=== PATIENT | male | born 1990 | race Caucasian/White ===

== ENCOUNTER 2017-08-01 10:00 | Emergency (ER) | payer BC ==
[~2017-08-01] VITALS: Ht 148.6 cm; Wt 54.2 kg
[2017-08-01 10:08] VITALS: TEMP 36.9; Ht 148.6 cm; Wt 54.2 kg
--- NOTE | 2017-08-01 11:47 | DIAGNOSTIC IMAGING REPORT ---
R KNEE 3 VIEWS CLINICAL HISTORY: fall; R knee and thoracic and lumbar back pain COMPARISON STUDY: None. FINDINGS: No acute fracture or dislocation. Faint chondrocalcinosis. Moderate joint effusion. 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 No significant soft tissue swelling. No radiopaque foreign bodies. IMPRESSION: 1. No acute fracture or dislocation within the right knee. 2. Moderate knee effusion. 3. Chondrocalcinosis. 4. Multiple osteochondromas. Electronically signed by: Emile Olsen M.D. 08/01/2017 11:45 AM Dictated Date/Time: 08/01/2017 11:43 AM
--- NOTE | 2017-08-01 11:56 | DIAGNOSTIC IMAGING REPORT ---
THORACIC SPINE 3 VIEWS, LUMBAR SPINE 5 VIEWS HISTORY: Thoracic and lumbar pain. Fall. COMPARISON: None. FINDINGS: There is no fracture. No subluxation. Disc spaces are preserved. Paraspinal soft tissues are unremarkable. The sacrum appears intact. A few tiny endplate osteophytes seen within the mid to lower thoracic spine is within minimal degenerative change. Mild levoscoliosis of the lumbar spine which may be positional. IMPRESSION: No fracture or subluxation within the thoracic or lumbar spine. Electronically signed by: Emile Olsen M.D. 08/01/2017 11:54 AM Dictated Date/Time: 08/01/2017 11:46 AM
[2017-08-01 12:43] VITALS: BP 128/81; PULSE 91; O2SAT 98
--- NOTE | 2017-08-01 20:48 | EMERGENCY ROOM VISIT NOTE ---
ED Visit Note First contact with patient: 10:59 Chief Complaint: Right knee and lower back pain. History of Present Illness: Patient reports approximately 20 minutes before he arrived in the emergency department he reports he was walking down stairs that were covered with ice. He reports he slipped and fell. He reports during the fall he twisted his right knee and struck his back on the steps. He reports before the fall he was not experiencing lightheaded or dizziness, the time of the fall he did not strike his head or have a loss of consciousness and since the injury he has not had any signs of head injury. Currently he places his right knee discomfort over the anterior and medial aspect of the knee at the joint line. He describes this as an achy sensation. He rates his discomfort 6/10. The pain is nonradiating. The pain worsens with ambulation, palpation, stress on the medial collateral ligament, hypertension and flexion beyond 90. He has not identified any alleviating factors related to the pain. He has not taken any medication for pain prior to arrival at the hospital. Additionally he complains of back pain. The pain extends from the T7-L5. He describes his pain as a sharp sensation. His pain is located over the bony spinous processes of the spine. His pain worsens with palpation and minimally with flexion at the waist. He has not taken any medications for pain prior to arrival at the hospital. He denies any associated head injuries, neck pain, chest pain, shortness of breath, abdominal pain, nausea, vomiting, lower extremity weakness/numbness/ tingling, previous significant injuries to the spine or the knee. Review of Systems: As noted above in history of present illness. 8 body systems were reviewed and found to be negative as noted above. Past Medical History: (1) Acute lymphoid leukemia, disease (2) Genital herpes simplex (3) Transplantation of bone marrow Current Medications: Zestril. Allergies to Medications: Augmentin. Social History: Patient is currently employed; he feels safe in his home environment; he admits to tobacco use. Physical Examination: Vital Signs: Date Time Temp Pulse Resp B/P (MAP) Pulse Ox O2 Delivery O2 Flow Rate FiO2 08/01/17 12:43 91 16 128/81 98 08/01/17 10:08 36.9 95 20 139/85 97 Room Air GENERAL: 27-year-old male in mild distress due to pain, nontoxic-appearing, afebrile and hemodynamically stable. NEUROLOGICAL: Awake, alert and oriented to person, place and time. Answering questions appropriately and following commands. Normal gait. Good hand eye coordination. No focal motor or sensory deficits. SKIN: Warm, dry and pink. No soft tissue trauma noted. HEENT: Atraumatic and normocephalic. BACK: No tenderness over the bony cervical spine. Full range of motion of the cervical spine. Mild to moderate tenderness starting at the T4 through L5 area. I do not appreciate any bony deformity, bony crepitus, step-offs, swelling or ecchymosis. No CVA tenderness. THORAX: Lungs sounds are clear to auscultation and equal bilaterally with symmetrical chest wall. ABDOMEN: Flat, soft and nontender. Positive bowel sounds in all quadrants. LOWER EXTREMITIES: Moves all extremities well on command and with purpose. All distal neurovascular statuses are intact and equal bilaterally. 2+ patellar and Achilles deep tendon reflexes intact and equal bilaterally. Throughout the leg skin was warm and pink and capillary refill is brisk. RIGHT LOWER EXTREMITY: No gross bony deformity. No malrotation or shortening. Mild to moderate tenderness over the medial joint line with swelling and possible early contusion. Minimal laxity of the medial collateral ligament when compared bilaterally. No laxity of the cruciate ligaments. Decreased range of motion due to pain and swelling. There is also minimal tenderness over the hamstrings attachment over the medial aspect of the knee. No pain throughout the lower leg, ankle or foot. Full muscle strength and range of motion of the lower leg and foot. Distal neurovascular statuses are intact. ED Course: Patient is assessed as noted above per Patient's medication list was reviewed. Patient was offered pain medication and refused; he was given ice for pain and comfort. Thoracic Spine X-Rays: Were read by myself and the radiologist showing no acute fractures or subluxations. Lumbar Spine X-Rays: Were read by myself and read by the radiologist showing no acute fractures or subluxations. Right Knee X-Rays: Were read by myself and shows no acute fractures or dislocations. Moderate joint effusion, multiple osteochondromas within the distal femur and proximal tibia. Patient was placed in a knee immobilizer and on nonweightbearing crutches. Patient was educated about today's findings and instructed on his treatment plan ; he verbalized understanding and agreement with this plan. Clinical Impression: Fall. Right knee pain. Thoracic and lumbar back pain. Disposition: Patient discharged home in stable condition accompanied by family member; prior to departure he was reassessed and rated his discomfort 01/12. Plan: Patient was encouraged to alternate ibuprofen and acetaminophen every 3 hours for persistent pain per Patient was encouraged use ice on areas of pain and swelling. Patient was encouraged to use knee immobilizer and nonweightbearing crutches for 3-6 days or until pain free. Patient was encouraged to follow-up with landscape specialist if no better in 6 -7 days. Patient was encouraged return ED for worsening/uncontrolled pain, uncontrolled swelling, leg weakness/numbness/tingling or any new/concerning symptoms.
[2017-08-19] MEDS ORDERED: LISI-725 PO (11:46)
== END 2017-08-01 12:40 | disposition home or self-care (01) ==
LOC: C.EDB 10:03 → C.EDD 12:40
DX: M25.561 Pain in right knee (principal); M54.5 Low back pain; M54.6 Pain in thoracic spine; W01.0XXA Fall on same level from slipping, tripping and stumbling without subsequent striking against object, initial encounter; I10 Essential (primary) hypertension; Z85.6 Personal history of leukemia; Z94.81 Bone marrow transplant status; Z79.899 Other long term (current) drug therapy; Z87.891 Personal history of nicotine dependence; Z88.8 Allergy status to other drugs, medicaments and biological substances

== ENCOUNTER 2017-08-19 16:57 | Emergency (ER) | payer BC ==
[~2017-08-19] VITALS: Ht 147.3 cm; Wt 52.9 kg
[~2017-08-19 16:57] MED LIST: LISI-725 PO
[2017-08-19 17:08] VITALS: TEMP 36.7; Ht 147.3 cm; Wt 52.9 kg
[2017-08-19] MEDS ORDERED: ALUMINUM/MAGNESIUM SUSP 30 ML UDC PO STA (18:23)
--- NOTE | 2017-08-19 18:29 | EMERGENCY ROOM VISIT NOTE ---
History Report prepared by Kaley: Stephon Gabriel Under the Supervision of: Dr. Willam Mack D.O. First contact with patient: 18:14 Chief Complaint: CARDIAC ASSESSMENT Stated Complaint: HIGH BLOOD PRESSURE, CHEST PAINS Nursing Triage Summary: Patient was at work and c/o left upper chest pains. 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 Patient takes lisinopril for HTN History of Present Illness The patient is a 27 year old male who presents to the Emergency Room with complaints of constant left sided chest pains that began at 1315, 5 hours prior to arrival. He describes the pain as an "ache." He claims that the pain is worse with breathing. 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 His blood pressure was 139/100, and she noted that he had a rapid heart beat. He denies any unusual pain the his abdomen, or lower extremities. 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 He has never experienced GERD secondary to the radiation. He also has stage II kidney disease. The patient's mother noted that the patient 's grandfather has had aneurysms in the past. 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 A total of 10 systems reviewed and were otherwise negative. Past Medical & Surgical Medical Problems: (1) Acute lymphoid leukemia, disease (2) Genital herpes simplex (3) Transplantation of bone marrow Family History FH: aneurysm Social History Smoking Status: Current Some Day Smoker Alcohol Use: occasionally Marital Status: single Occupation Status: employed Current/Historical Medications Scheduled Black Pepper-Turmeric (Turmeric Curcumin 3-500 mg), 1 CAP PO DAILY Lisinopril (Zestril), 20 MG PO DAILY Allergies Coded Allergies: Iodinated Diagnostic Agents (Verified Allergy, Severe, Shakes and hives, ) Amoxicillin (Unverified Allergy, Unknown, UNKNOWN, 08/01/17) Clavulanic Acid (Unverified Allergy, Unknown, UNKNOWN, 08/01/17) Physical Exam Vital Signs Date Time Temp Pulse Resp B/P (MAP) Pulse Ox O2 Delivery O2 Flow Rate FiO2 08/19/17 22:30 79 19 113/81 97 08/19/17 22:25 80 99 08/19/17 22:10 81 98 08/19/17 22:00 107/75 08/19/17 21:55 81 27 99 08/19/17 21:50 85 100 Room Air 08/19/17 21:05 85 27 99 08/19/17 21:00 122/82 08/19/17 20:50 77 24 99 08/19/17 20:45 85 23 100 08/19/17 20:30 81 13 122/75 97 08/19/17 20:15 85 21 97 08/19/17 20:00 80 20 103/73 98 08/19/17 19:45 85 26 99 08/19/17 19:40 82 17 100 08/19/17 19:30 111/73 08/19/17 19:25 87 99 08/19/17 19:10 81 26 100 08/19/17 19:08 81 08/19/17 19:05 81 24 100 Room Air 08/19/17 19:04 112/73 08/19/17 19:00 81 28 08/19/17 18:55 85 28 08/19/17 18:44 97 Room Air 08/19/17 18:44 97 Room Air 08/19/17 17:10 Room Air 08/19/17 17:08 36.7 98 16 126/82 99 Room Air Physical Exam GENERAL: Patient is awake, alert, and in no acute distress. Patient is resting comfortably and showing no signs of anxiety EYES: The conjunctivae are clear. The pupils are round and reactive. EARS, NOSE, MOUTH AND THROAT: The nose is without any evidence of any deformity. Mucous membranes are moist tongue is midline NECK: The neck is nontender and supple. RESPIRATORY: Normal respiratory effort is noted there is no evidence of wheezing rhonchi or rales CARDIOVASCULAR: Regular rate and rhythm noted there no murmurs rubs or gallops normal S1 normal S2 GASTROINTESTINAL: The abdomen is soft. Bowel sounds are present in all quadrants. Abdomen is nontender MUSCULOSKELETAL/EXTREMITIES: There is no evidence of gross deformity full range of motion is noted in the hips and shoulders SKIN: There is no obvious evidence of any rash. There are no petechiae, pallor or cyanosis noted. NEUROLOGIC: Patient is awake alert and oriented x3 Medical Decision & Procedures ER Provider Diagnostic Interpretation: Radiology results as stated below per my review and radiologist interpretation: R KNEE 1 OR 2 VIEWS ROUTINE CLINICAL HISTORY: swelling COMPARISON: August 01, 2017 DISCUSSION: Multiple osteochondromas are again visualized. There is a small joint effusion. There are no acute fractures. The bones are mildly osteopenic. There is very subtle chondrocalcinosis IMPRESSION: 1. No acute fractures 2. Multiple osteochondromas 3. Small joint effusion Electronically signed by: Bobby Lozano M.D. 08/19/2017 9:20 PM Dictated Date/Time: 08/19/2017 9:19 PM ULTRASOUND R VENOUS DOPP LOWER EXT UNILAT CLINICAL HISTORY: Right leg pain COMPARISON STUDY: No previous studies for comparison. FINDINGS: Real-time and color flow Doppler imaging were performed. Flow was seen within the femoral, popliteal and calf veins with no intraluminal thrombus demonstrated. The saphenous vein is patent. There is an architecturally unremarkable 19 x 12 x 7 mm right groin lymph node. IMPRESSION: No evidence of right lower extremity DVT. Electronically signed by: Bobby Lozano M.D. 08/19/2017 9:40 PM Dictated Date/Time: 08/19/2017 9:39 PM CHEST ONE VIEW PORTABLE CLINICAL HISTORY: Atypical chest pain COMPARISON STUDY: September 2012 FINDINGS: The cardiac and mediastinal contours are normal. There is no evidence of focal pulmonary consolidation. There is no evidence of failure. No pleural effusions are visualized.[ IMPRESSION: No active disease in the chest. Electronically signed by: Bobby Lozano M.D. 08/19/2017 6:50 PM Dictated Date/Time: 08/19/2017 6:49 PM Laboratory Results 08/19/17 19:00 Red Blood Count 4.50, Mean Corpuscular Volume 84.4, Mean Corpuscular Hemoglobin 28.2, Mean Corpuscular Hemoglobin Concent 33.4, Mean Platelet Volume 9.5, Neutrophils (%) (Auto) 59.2, Lymphocytes (%) (Auto) 30.7, Monocytes (%) (Auto) 7.8, Eosinophils (%) (Auto) 1.7, Basophils (%) (Auto) 0.3, Neutrophils # (Auto) 6.94, Lymphocytes # (Auto) 3.61, Monocytes # (Auto) 0.92, Eosinophils # (Auto) 0.20, Basophils # (Auto) 0.03 08/19/17 19:00 Test 08/19/17 19:00 White Blood Count 11.74 K/uL (4.8-10.8) Red Blood Count 4.50 M/uL (4.7-6.1) Hemoglobin 12.7 g/dL (14.0-18.0) Hematocrit 38.0 % (42-52) Mean Corpuscular Volume 84.4 fL (80-100) Mean Corpuscular Hemoglobin 28.2 pg (25-34) Mean Corpuscular Hemoglobin Concent 33.4 g/dl (32-36) Platelet Count 348 K/uL (130-400) Mean Platelet Volume 9.5 fL (7.4-10.4) Neutrophils (%) (Auto) 59.2 % Lymphocytes (%) (Auto) 30.7 % Monocytes (%) (Auto) 7.8 % Eosinophils (%) (Auto) 1.7 % Basophils (%) (Auto) 0.3 % Neutrophils # (Auto) 6.94 K/uL (1.4-6.5) Lymphocytes # (Auto) 3.61 K/uL (1.2-3.4) Monocytes # (Auto) 0.92 K/uL (0.11-0.59) Eosinophils # (Auto) 0.20 K/uL (0-0.5) Basophils # (Auto) 0.03 K/uL (0-0.2) RDW Standard Deviation 42.9 fL (36.4-46.3) RDW Coefficient of Variation 13.9 % (11.5-14.5) Immature Granulocyte % (Auto) 0.3 % Immature Granulocyte # (Auto) 0.04 K/uL (0.00-0.02) Prothrombin Time 11.0 SECONDS (9.0-12.0) Prothromb Time International Ratio 1.0 (0.9-1.1) Activated Partial Thromboplast Time 35.7 SECONDS (21.0-31.0) Partial Thromboplastin Ratio 1.4 Anion Gap 10.0 mmol/L (3-11) Est Creatinine Clear Calc Drug Dose 41.6 ml/min Estimated GFR () 62.7 Estimated GFR (Non- 54.1 BUN/Creatinine Ratio 22.6 (10-20) Calcium Level 10.1 mg/dl (8.5-10.1) Total Bilirubin 0.3 mg/dl (0.2-1) Direct Bilirubin < 0.1 mg/dl (0-0.2) Aspartate Amino Transf (AST/SGOT) 17 U/L (15-37) Alanine Aminotransferase (ALT/SGPT) 24 U/L (12-78) Alkaline Phosphatase 95 U/L (45-117) Total Creatine Kinase 78 U/L (39-308) Creatine Kinase MB < 0.5 ng/ml (0.5-3.6) Creatine Kinase MB Ratio (0-3.0) Troponin I < 0.015 ng/ml (0-0.045) Total Protein 8.9 gm/dl (6.4-8.2) Albumin 3.8 gm/dl (3.4-5.0) Lipase 247 U/L (73-393) Laboratory results per my review. Medications Administered Medications (Trade) Dose Ordered Sig/Desmond Route Start Time Stop Time Status Last Admin Dose Admin Al Hydroxide/Mg Hydroxide (Maalox Susp) 30 ml NOW STAT PO 08/19/17 18:23 08/19/17 18:25 DC 08/19/17 18:43 30 ML ECG Indication: chest pain Rate (beats per minute): 97 Rhythm: normal sinus Findings: no acute ischemic change, no ectopy Comparison ECG Date: no prior available ED Course 1815: The patient was evaluated in room B11. A complete history and physical examination were performed. 1822: Ordered Maalox Susp 30 mL PO. 2055: I checked on the patient at this time. He mentioned that he is having pain behind the right knee and calf. He notes that he fell before [place] and has had pain and swelling since. 224: Upon reevaluation, the patient is resting in bed. I discussed the results and treatment plan with him. He verbalized agreement of the treatment plan. The patient was discharged home. Medical Decision Differential diagnosis: Etiologies such as cardiac ischemia, aortic dissection, pulmonary embolism, pneumonia, pneumothorax, musculoskeletal, infections, pericarditis, myocarditis , esophageal rupture, gastrointestinal, as well as others were entertained. Nursing notes reviewed. The patient is a 27-year-old male who presented to the emergency department for an evaluation of chest discomfort. The patient did not have any acute changes on EKG. I discussed the patient's laboratory and radiographic studies with him. I also discussed the limitations of the emergency Department workup for chest pain. The patient was encouraged to rest and avoid any strenuous activity. I also recommended that he call his primary care physician in the morning to schedule a follow-up appointment. Otherwise he was encouraged to return to the emergency department immediately if symptoms change worsen or the need arises. Blood Pressure Screening Patient's blood pressure: Elevated blood pressure Blood pressure disposition: Elevated BP felt to be situational Impression Primary Impression: Atypical chest pain Additional Impression: Contusion of right knee Scribe Attestation The scribe's documentation has been prepared under my direction and personally reviewed by me in its entirety. I confirm that the note above accurately reflects all work, treatment, procedures, and medical decision making performed by me. Departure Information Dispostion Home / Self-Care Referrals Jovita Valentin D.O. (PCP) Forms IMPORTANT VISIT INFORMATION Patient Instructions My [facility] [employer] Additional Instructions Continue to use Maalox or Mylanta as directed for symptomatically relief. Follow -up with your family for reevaluation. Follow-up with the orthopedic physician as scheduled. Return to the emergency department if symptoms change worsen or the need arises. Problem Qualifiers Additional Impression: Contusion of right knee Encounter type: initial encounter Qualified Codes: S80.01XA - Contusion of right knee, initial encounter
[2017-08-19] MEDS ORDERED: BLAC1CAP5 PO (18:39)
[2017-08-19 18:44] VITALS: O2SAT 97
--- NOTE | 2017-08-19 18:51 | DIAGNOSTIC IMAGING REPORT ---
CHEST ONE VIEW PORTABLE CLINICAL HISTORY: Atypical chest pain COMPARISON STUDY: September 2012 FINDINGS: The cardiac and mediastinal contours are normal. There is no evidence of focal pulmonary consolidation. There is no evidence of failure. No pleural effusions are visualized.[ IMPRESSION: No active disease in the chest. Electronically signed by: Bobby Lozano M.D. 08/19/2017 6:50 PM Dictated Date/Time: 08/19/2017 6:49 PM
[2017-08-19 19:30] LABS: BASO % 0.3 %; BASO ABS # 0.03 K/uL (0-0.2); EOS % 1.7 %; HEMOGLOBIN 12.7 g/dL (14.0-18.0); IG# 0.04 K/uL (0.00-0.02); LYMPH % 30.7 %; LYMPH ABS # 3.61 K/uL (1.2-3.4); MEAN CELL VOLUME 84.4 fL (80-100); MEAN CORPUSCULAR HEMOGLOBIN 28.2 pg (25-34); MEAN CORPUSCULAR HGB CONC 33.4 g/dl (32-36); MEAN PLATELET VOLUME 9.5 fL (7.4-10.4); MONO % 7.8 %; MONO ABS # 0.92 K/uL (0.11-0.59); NEUT % 59.2 %; NEUT ABS # 6.94 K/uL (1.4-6.5); PLATELET COUNT 348 K/uL (130-400); RED CELL DISTRIBUTION WIDTH CV 13.9 % (11.5-14.5); RED CELL DISTRIBUTION WIDTH SD 42.9 fL (36.4-46.3); WHITE BLOOD COUNT 11.74 K/uL (4.8-10.8)
[2017-08-19 19:43] LABS: PTT PATIENT 35.7 SECONDS (21.0-31.0)
[2017-08-19 19:52] LABS: ALBUMIN 3.8 gm/dl (3.4-5.0); ALT/SGPT 24 U/L (12-78); AST/SGOT 17 U/L (15-37); BLOOD UREA NITROGEN 38 mg/dl (7-18); CALCIUM 10.1 mg/dl (8.5-10.1); CARBON DIOXIDE 27 mmol/L (21-32); CREATININE 1.68 mg/dl (0.60-1.40); GLUCOSE 94 mg/dl (70-99); LIPASE 247 U/L (73-393); POTASSIUM 4.3 mmol/L (3.5-5.1); SODIUM 136 mmol/L (136-145)
[2017-08-19 19:57] LABS: ALKALINE PHOSPHATASE 95 U/L (45-117); CKMB < 0.5 ng/ml (0.5-3.6); TOTAL PROTEIN 8.9 gm/dl (6.4-8.2)
--- NOTE | 2017-08-19 21:21 | DIAGNOSTIC IMAGING REPORT ---
R KNEE 1 OR 2 VIEWS ROUTINE CLINICAL HISTORY: swelling COMPARISON: August 01, 2017 DISCUSSION: Multiple osteochondromas are again visualized. There is a small joint effusion. There are no acute fractures. The bones are mildly osteopenic. There is very subtle chondrocalcinosis IMPRESSION: 1. No acute fractures 2. Multiple osteochondromas 3. Small joint effusion Electronically signed by: Bobby Lozano M.D. 08/19/2017 9:20 PM Dictated Date/Time: 08/19/2017 9:19 PM
--- NOTE | 2017-08-19 21:41 | DIAGNOSTIC IMAGING REPORT ---
ULTRASOUND R VENOUS DOPP LOWER EXT UNILAT CLINICAL HISTORY: Right leg pain COMPARISON STUDY: No previous studies for comparison. FINDINGS: Real-time and color flow Doppler imaging were performed. Flow was seen within the femoral, popliteal and calf veins with no intraluminal thrombus demonstrated. The saphenous vein is patent. There is an architecturally unremarkable 19 x 12 x 7 mm right groin lymph node. IMPRESSION: No evidence of right lower extremity DVT. Electronically signed by: Bobby Lozano M.D. 08/19/2017 9:40 PM Dictated Date/Time: 08/19/2017 9:39 PM
[2017-08-19 22:30] VITALS: BP 113/81; PULSE 79; O2SAT 97
== END 2017-08-19 22:36 | disposition home or self-care (01) ==
LOC: C.EDB 16:59
DX: R07.89 Other chest pain (principal); S80.01XA Contusion of right knee, initial encounter; W19.XXXA Unspecified fall, initial encounter; N18.2 Chronic kidney disease, stage 2 (mild); F17.200 Nicotine dependence, unspecified, uncomplicated; Z85.6 Personal history of leukemia; Z92.3 Personal history of irradiation; Z94.81 Bone marrow transplant status; Z82.49 Family history of ischemic heart disease and other diseases of the circulatory system

== ENCOUNTER → 2017-08-23 | Outpatient (CLI) | payer BC ==
[~2017-08-23] MED LIST changes: +BLAC1CAP5 PO
--- NOTE | 2017-08-23 21:27 | DIAGNOSTIC IMAGING REPORT ---
R LOWER EXT JOINT WITHOUT CLINICAL HISTORY: 27 years-old Male with RT KNEE PAIN. Acute right knee pain. History of osteochondromatosis. Remote history of cancer with bone marrow transplant COMPARISON: Right knee radiographs 08/19/2017 TECHNIQUE: Multiplanar, multisequence MRI of the right knee was performed without intravenous contrast. FINDINGS: MENISCI: Horizontal undersurface tear involves the posterior horn medial meniscus with extension into the meniscal root as seen on images 15 through 18 of series 7. The medial meniscus also appears diminutive in size. No definite flipped fragment or parameniscal cyst. There is mild irregularity of the free edge posterior horn lateral meniscus as seen on image 8 series 5 without discrete tear identified. CRUCIATE LIGAMENTS: The anterior and posterior cruciate ligaments are normal in signal, morphology and course. COLLATERAL LIGAMENTS: The popliteus tendon, biceps femoris tendon, fibular collateral ligament and iliotibial band are intact. The superficial and deep components of the medial collateral ligament are intact. EXTENSOR MECHANISM: The quadriceps and patellar tendons are intact. The medial and lateral patellar retinacula are intact. KNEE JOINT: Large joint effusion with synovitis. Moderate amount of fluid is noted within the deep pretibial bursa compatible with bursitis. BONE MARROW: Moderate focal bone marrow edema involves the lateral tibial plateau with focal area of intermediate grade chondral fissuring involving the posterior aspect of the lateral tibial plateau as seen on image 8 series 5. No intra-articular loose body identified. No acute fracture or subluxation identified. Low to intermediate grade chondral fissuring is noted involving the medial patellar facet along its far medial portion. There is undertubulation of the distal femur with multiple osteochondromas noted involving the distal femur with small osteochondromas noted involving the proximal tibia as well. No thickening of the cartilaginous caps identified to suggest malignant degeneration. No osteochondral fracture. SOFT TISSUES: Trace Holloway's cyst. IMPRESSION: 1. Intermediate grade chondral fissuring involves the posterior aspect of the lateral tibial plateau with moderate associated bone marrow edema likely reactive or reflecting a marrow contusion. No definite acute fracture identified. 2. Horizontal undersurface tear involves the posterior horn medial meniscus with extension into the meniscal root. 3. Mild irregularity involves the free edge posterior horn lateral meniscus without discrete tear identified. 4. Large joint effusion with synovitis. 5. 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 No evidence of malignant degeneration. 6. Trace Holloway's cyst. The above report was generated using voice recognition software. It may contain grammatical, syntax or spelling errors. Electronically signed by: Estevan Chavez M.D. 08/23/2017 9:26 PM Dictated Date/Time: 08/23/2017 7:58 PM
== END | disposition home or self-care (01) ==
LOC: C.MRI 18:58
PROVIDERS: ATTEND Internal Medicine
DX: M25.561 Pain in right knee (principal); Z85.6 Personal history of leukemia; Z94.81 Bone marrow transplant status

== ENCOUNTER 2023-02-13 19:10 | Inpatient (IN) ==
--- NOTE | 2023-02-13 19:18 | Emergency Department Note ---
Impression & Plan Stroke-like symptoms, Hypertension, CKD (chronic kidney disease) stage 3, GFR 30-59 ml/min, History of intracranial hemorrhage ED Provider Note NAME: ANI ACKERMAN AGE: 32 SEX: M : 1990 ARRIVES VIA: Ambulance INFORMANT: Patient, ED PROVIDER(S): Gilberto Friedman MD CHIEF COMPLAINT: Facial droop MEDICAL DECISION MAKING: Patient presented due to concern for left-sided facial droop which has since improved. Patient not a TNK candidate given his prior history of hemorrhagic CVA. IV was established blood work is obtained. Patient did have a CT of the head. The patient's kidney function is elevated will defer CT angiography at this time. Patient's blood work is fairly unremarkable other than some of his chronic Numbers. The patient's blood work shows a normal white count mild anemia hemoglobin 11. Platelet count is unremarkable. Kidney function with creatinine of 2.2. Troponin is not elevated. Urinalysis negative. COVID- negative. Given the patient's more complicated history with possible TIA I did speak with Dr. Orantes neurology [facility] in [place]. After a discussion with him he recommends an MRI with and without contrast as well as an EEG. He does not recommend any antiplatelets at this time until MRI obtained. He did also suggest the EEG is given the insult to the brain that this could be causing his seizure which may be manifesting itself as a strokelike symptom. I did convey these recommendations the on-call hospitalist Dr. Coyne. Patient was admitted to the medicine service. At the time of admission the patient's symptoms had resolved. MRI pending at the time of admission. Prior /Outside records reviewed: I did review a note from [facility] January 19. Patient does have a known history of prior significant ICH and craniotomy with left frontal EVD history of frontotemporal parietal craniotomy. Patient reportedly has left-sided weakness and cognitive impairments. Differential diagnosis: CVA, infection, dehydration, metabolic abnormality, hypo/hyperglycemia, elec trolyte disturbance, anemia, hypoxia, cardiac sources, intracerebral event, toxicologic, neurologic, as well as other pathologies. Diagnostics, as interpreted by me: ECG: He will see his wound care rate of 73, normal intervals, normal axis no ST elevations. Cardiac monitoring: An order was placed for continuous cardiac monitoring. The monitor shows a rate of 77 with sinus rhythm. Patient was placed on pulse oximetry Medical decision rules: None Imaging studies: See below I informally reviewed the patient's CT noncontrast of the head which showed no obvious ICH. HPI: Patient presents due to concern for left-sided facial droop and visual changes which included double vision. The patient does have a notably recent history of hemorrhagic CVA that he did require craniotomy. The patient did get back a second time in December where he had a second procedure completed. Patient believes that his symptoms have since resolved. Patient denies any chest pain shortness of breath nausea vomiting. Patient states he has been compliant with his medications. Patient denies any significant change in his chronic deficits outside of the facial droop and the double vision which has now resolved. PAST MEDICAL HISTORY: See Below PAST SURGICAL HISTORY: See Below SOCIAL HISTORY: See Below HOME MEDICATIONS: See Below ALLERGIES: See Below VITALS: See Below PHYSICAL EXAMINATION: GENERAL: NAD, wearing glasses, non-toxic. EYE EXAM: Normal conjunctiva. PERRL, no anisocoria. R sided gaze preference. NECK: Supple, no nuchal rigidity, no adenopathy, non-tender. No signs of meningismus. FROM of the neck with good chin to chest and neck extension. No stridor. LUNGS: Clear to auscultation. Normal chest wall mechanics. HEART: NSR, no MRG. ABDOMEN: Abdomen soft, non-tender, no masses, no rebound or guarding. BACK: No CVA TTP. SKIN: No rashes and no bruising. UPPER EXTREMITIES: Upper extremities are grossly normal. LOWER EXTREMITIES: Grossly normal, no edema. Left lower extremity in foot drop AFO. NEURO EXAM: A&O x3, cranial nerves II-XII grossly intact w/ exception of possible difficulty with the left grimace but no obvious facial droop and R sided gaze preference, normal speech, left lower extremity weakness greater than left upper, Past Med/Surg History Medical History Acute lymphoid leukemia, disease (Unknown) CKD (chronic kidney disease) stage 3, GFR 30-59 ml/min History of intracranial hemorrhage History of leukemia Hypertension Transplantation of bone marrow (Unknown) Surgical History H/O craniotomy Family History Other Hypertension Social History Smoking Status: Former smoker Tobacco Type: Cigarettes and E-cigarettes / Vaping Preferred Language: [place]de[place] Communication Ability: Effective Feels Safe at Home: Yes Assistive Devices: Cane Allergies Allergies Allergy/AdvReac Type Severity Reaction Status Date / Time Iodinated Contrast Media Allergy Severe Shakes and Verified 02/13/23 19:38 hives amoxicillin AdvReac Intermediate Vomiting Verified 02/13/23 19:38 clavulanic acid AdvReac Intermediate Vomiting Verified 02/13/23 19:38 Home Meds Home Medications Medication Instructions Recorded Confirmed losartan 50 mg tablet 50 mg PO DAILY 11/25/22 02/13/23 acetaminophen 325 mg tablet 650 mg PO Q4H PRN PAIN/FEVER 02/13/23 02/13/23 (Tylenol) bisacodyl 10 mg rectal suppository 10 mg HI DAILY PRN Constipation 02/13/23 02/13/23 carvedilol 25 mg tablet 25 mg PO BIDM 02/13/23 02/13/23 docusate sodium 100 mg capsule 100 mg PO BID 02/13/23 02/13/23 (Colace) magnesium hydroxide 400 mg/5 mL 30 ml PO DAILY PRN Constipation 02/13/23 02/13/23 oral suspension (Milk of Magnesia) melatonin 3 mg tablet 6 mg PO HS PRN Sleep 02/13/23 02/13/23 ondansetron 4 mg disintegrating 4 mg PO Q4H PRN NAUSEA/VOMITING 02/13/23 02/13/23 tablet polyethylene glycol 3350 17 17 g PO QDL PRN Constipation 02/13/23 02/13/23 gram/dose oral powder (Miralax) prednisone 5 mg tablet See Rx Instructions .Route .COMPLEX 02/13/23 02/13/23 sennosides 8.6 mg-docusate sodium 1 tab-cap PO QDL PRN Constipation 02/13/23 02/13/23 50 mg tablet (Senokot-S) Results & Data (ED) Vital Signs Vital Signs - 24 hr 02/13/23 21:30 02/13/23 21:30 02/13/23 22:47 Pulse Rate 60 Pulse Rate from SpO2 Sensor 62 70 Respiratory Rate 21 Blood Pressure 141/96 H Blood Pressure Mean 111 Pulse Oximetry 95 95 02/13/23 22:48 02/13/23 22:48 02/13/23 23:00 Pulse Rate 66 Pulse Rate from SpO2 Sensor 64 Respiratory Rate 20 Blood Pressure 149/103 H 154/107 H Blood Pressure Mean 118 122 Pulse Oximetry 96 02/13/23 23:00 Pulse Rate 63 Pulse Rate from SpO2 Sensor 68 Respiratory Rate 23 Blood Pressure Blood Pressure Mean Pulse Oximetry 95 Home Medications Current Medication List: was personally reviewed by me Laboratory Data Attestation: I reviewed the patient's lab results. 02/14/23 04:18 02/14/23 04:18 Lab Results 02/13/23 02/13/23 02/13/23 Range/Units 19:36 19:36 19:36 WBC 10.03 (4.8-10.8) K/ul RBC 4.14 L (4.70-6.10) M/uL Hgb 11.4 L (14.0-18.0) g/dl POC Hgb (14.0-18.0) g/dl Hct 33.9 L (42.0-52.0) % POC Hct (42-52) % MCV 81.9 (80.0-100.0) fL MCH 27.5 (25.0-34.0) pg MCHC 33.6 (32.0-36.0) g/dL RDW Std Deviation 45.6 (36.4-46.3) fL RDW Coeff of William 15.3 H (11.5-14.5) % Plt Count 267 (130-400) K/uL MPV 9.7 (9.4-12.4) fL Immature Gran % (Auto) 1.2 % Neut % (Auto) 81.3 % Lymph % (Auto) 14.6 % Archer % (Auto) 1.8 % Eos % (Auto) 0.4 % Baso % (Auto) 0.7 % Neut # (Auto) 8.16 H (1.40-6.50) K/uL Lymph # (Auto) 1.46 (1.2-3.4) K/uL Archer # (Auto) 0.18 (0.11-0.59) K/uL Eos # (Auto) 0.04 (0-0.50) K/uL Baso # (Auto) 0.07 (0-0.2) K/uL Immature Gran # (Auto) 0.12 (0.01-0.20) K/uL PT 11.1 (9.0-12.0) Seconds INR 1.0 (0.9-1.1) APTT 28.6 (21.0-31.0) Seconds PTT Ratio 1.0 POC Sodium (135-144) mmol/L Sodium 136 (136-145) mmol/L POC Potassium (3.3-5.0) mmol/L Potassium 4.8 (3.5-5.1) mmol/L POC Chloride (101-112) mmol/L Chloride 98 (98-107) mmol/L Carbon Dioxide 21 (21-32) mmol/L POC Total CO2 (24-31) mmol/L Anion Gap 17 H (3-11) POC Anion Gap (16-25) mmol/L POC BUN (7-18) mg/dl BUN 49 H (6-23) mg/dl Creatinine 2.23 H (0.6-1.4) mg/dl POC Creatinine (0.6-1.3) mg/dl Est Cr Clr Drug Dosing 32.9 ml/min Est GFR ( Amer) 43.0 ml/min Est GFR (Non-Af Amer) 37.1 ml/min BUN/Creatinine Ratio 22.0 H (10-20) Glucose 161 H (70-99(Fasting)) mg/dl POC Glucose (other) (70-99) mg/dl Calcium 10.4 H (8.6-10.3) mg/dl POC Ioniz Calcium Coreen (1.12-1.32) mmol/l Magnesium 1.8 (1.7-2.4) mg/dl Total Bilirubin 0.4 (0.2-1.0) mg/dl AST 15 (13-39) U/L ALT 20 (7-52) U/L Alkaline Phosphatase 81 (34-104) U/L Troponin I High Sens 9.2 (0-20) pg/ml Total Protein 7.7 (6.0-8.3) gm/dl Albumin 4.5 (3.4-5.0) gm/dl Globulin 3.2 (2.5-4.0) gm/dl Albumin/Globulin Ratio 1.4 (0.9-2) Urine Color Urine Appearance (Clear) Urine pH (4.5-7.5) Ur Specific Bristol (1.000-1.030) Urine Protein (Negative) Urine Glucose (UA) (Negative) Urine Ketones (Negative) Urine Blood (Negative) Urine Nitrite (Negative) Urine Bilirubin (Negative) Urine Urobilinogen (Negative) Ur Leukocyte Esterase (Negative) Urine WBC (Auto) (0-5) /hpf Urine RBC (Auto) (0-4) /hpf U Hyaline Cast (Auto) (0-5) /lpf U Epithel Cells (Auto) (0-5) /lpf Urine Bacteria (Auto) (Negative) SARS-CoV-2, RNA, NAAT (NEGATIVE) 02/13/23 02/13/23 02/13/23 Range/Units 19:38 20:30 21:05 WBC (4.8-10.8) K/ul RBC (4.70-6.10) M/uL Hgb (14.0-18.0) g/dl POC Hgb 11.9 L (14.0-18.0) g/dl Hct (42.0-52.0) % POC Hct 35 L (42-52) % MCV (80.0-100.0) fL MCH (25.0-34.0) pg MCHC (32.0-36.0) g/dL RDW Std Deviation (36.4-46.3) fL RDW Coeff of William (11.5-14.5) % Plt Count (130-400) K/uL MPV (9.4-12.4) fL Immature Gran % (Auto) % Neut % (Auto) % Lymph % (Auto) % Archer % (Auto) % Eos % (Auto) % Baso % (Auto) % Neut # (Auto) (1.40-6.50) K/uL Lymph # (Auto) (1.2-3.4) K/uL Archer # (Auto) (0.11-0.59) K/uL Eos # (Auto) (0-0.50) K/uL Baso # (Auto) (0-0.2) K/uL Immature Gran # (Auto) (0.01-0.20) K/uL PT (9.0-12.0) Seconds INR (0.9-1.1) APTT (21.0-31.0) Seconds PTT Ratio POC Sodium 136 (135-144) mmol/L Sodium (136-145) mmol/L POC Potassium 4.8 (3.3-5.0) mmol/L Potassium (3.5-5.1) mmol/L POC Chloride 103 (101-112) mmol/L Chloride (98-107) mmol/L Carbon Dioxide (21-32) mmol/L POC Total CO2 21 L (24-31) mmol/L Anion Gap (3-11) POC Anion Gap 18.0 (16-25) mmol/L POC BUN 47 H (7-18) mg/dl BUN (6-23) mg/dl Creatinine (0.6-1.4) mg/dl POC Creatinine 2.3 H (0.6-1.3) mg/dl Est Cr Clr Drug Dosing ml/min Est GFR ( Amer) ml/min Est GFR (Non-Af Amer) ml/min BUN/Creatinine Ratio (10-20) Glucose (70-99(Fasting)) mg/dl POC Glucose (other) 170 H (70-99) mg/dl Calcium (8.6-10.3) mg/dl POC Ioniz Calcium Coreen 1.11 L (1.12-1.32) mmol/l Magnesium (1.7-2.4) mg/dl Total Bilirubin (0.2-1.0) mg/dl AST (13-39) U/L ALT (7-52) U/L Alkaline Phosphatase (34-104) U/L Troponin I High Sens (0-20) pg/ml Total Protein (6.0-8.3) gm/dl Albumin (3.4-5.0) gm/dl Globulin (2.5-4.0) gm/dl Albumin/Globulin Ratio (0.9-2) Urine Color Yellow Urine Appearance Clear (Clear) Urine pH 5.5 (4.5-7.5) Ur Specific Bristol 1.007 (1.000-1.030) Urine Protein 2+ H (Negative) Urine Glucose (UA) Negative (Negative) Urine Ketones Negative (Negative) Urine Blood Negative (Negative) Urine Nitrite Negative (Negative) Urine Bilirubin Negative (Negative) Urine Urobilinogen Negative (Negative) Ur Leukocyte Esterase Negative (Negative) Urine WBC (Auto) 1-5 (0-5) /hpf Urine RBC (Auto) 0-4 (0-4) /hpf U Hyaline Cast (Auto) 0 (0-5) /lpf U Epithel Cells (Auto) 0-5 (0-5) /lpf Urine Bacteria (Auto) Negative (Negative) SARS-CoV-2, RNA, NAAT NEGATIVE (NEGATIVE) Administered Medications Atorvastatin Calcium (Atorvastatin 20 Mg Tab) 20 mg PO QAM [facility] Stop: 03/16/23 08:59 Last Admin: 02/14/23 09:15 Dose: 20 mg Documented By: GANGA Carvedilol (Carvedilol 25 Mg Tab) 25 mg PO [facility]IDM [facility] Stop: 03/16/23 16:59 Last Admin: 02/14/23 17:32 Dose: 25 mg Documented By: GANGA Docusate Sodium (Docusate Sodium 100 Mg Cap) 100 mg PO BID [place] Stop: 03/16/23 08:59 Last Admin: 02/14/23 20:56 Dose: Not Given Documented By: Admin: 02/14/23 09:44 Dose: Not Given Documented By: GANGA Heparin Sodium (Porcine) (Heparin Sod 5,000 Unit/0.5 Ml Vial) 5,000 units SQ Q8 [place] Stop: 03/16/23 05:59 Last Admin: 02/14/23 20:56 Dose: Not Given Documented By: Admin: 02/14/23 13:39 Dose: Not Given Documented By: Admin: 02/14/23 05:37 Dose: 5,000 units Documented By: DALE Losartan Potassium (Losartan Potassium 50 Mg Tab) 50 mg PO DAILY [place]O Stop: 03/16/23 13:44 Last Admin: 02/14/23 13:53 Dose: 50 mg Documented By: GANGA Discontinued Medications Aspirin (Aspirin Chew 324 Mg) 324 mg PO NOW STA Stop: 02/13/23 23:51 Last Admin: 02/14/23 00:00 Dose: 324 mg Documented By: MELONY Diphenhydramine HCl (Diphenhydramine 50 Mg/Ml Vial) 12.5 mg IV NOW STA Stop: 02/13/23 19:24 Last Admin: 02/13/23 21:34 Dose: Not Given Documented By: DALE Gadobutrol (Gadobutrol 65ml Vial) 4.5 ml IV ONCE ONE Stop: 02/13/23 22:14 Last Admin: 02/13/23 22:14 Dose: 4.5 ml Documented By: ADRIANO Magnesium Sulfate/Dextrose (Magnesium Sulfate / D5w) 1 gm in 100 mls @ 50 mls/hr IV ONE ONE Stop: 02/13/23 22:59 Last Infusion: 02/14/23 00:52 Dose: 0 mls/hr Documented By: Admin: 02/13/23 21:32 Dose: 50 mls/hr Documented By: DALE Lactated Ringer's (Lr) 1,000 mls @ 75 mls/hr IV .[id number] ONE Stop: 02/14/23 10:35 Last Infusion: 02/14/23 11:12 Dose: 75 mls/hr Documented By: Admin: 02/13/23 21:30 Dose: 75 mls/hr Documented By: DALE Methylprednisolone (Methylprednisolone 125 Mg/2 Ml Vial) 60 mg IV NOW STA Stop: 02/13/23 19:24 Last Admin: 02/13/23 21:34 Dose: Not Given Documented By: DALE Imaging Data Radiologist's Impression: Head CT 02/13/23 19:10 CR Exam(s): CT HEAD Without Contrast EXAM: CT Head Without Intravenous Contrast CLINICAL HISTORY: Reason for exam: neuro deficit, acute stroke suspected. TECHNIQUE: Axial computed tomography images of the head/brain without intravenous contrast. CTDI is 37.33 mGy and DLP is 620 mGy-cm. Automated exposure control was utilized for the study. A dose lowering technique was utilized adhering to the principles of ALARA. COMPARISON: 12/10/22. FINDINGS: Redemonstrated right frontal lobe encephalomalacia, apparently the site of a prior hematoma. Redemonstrated overlying craniotomy with chronic postoperative neural changes. Stable encephalomalacia to the inferior right cerebellar hemisphere. No intracranial hemorrhage or mass-effect. No clear acute large vessel territory infarction. Atherosclerosis of skull base arteries. Stable mild ex vacuo dilation of the right lateral ventricle related to adjacent parenchymal volume loss. No evidence of obstructive hydrocephalus. No acute skull fracture. No mastoid or paranasal sinus effusion. IMPRESSION: No acute intracranial process. Right cerebral and cerebellar encephalomalacia and other chronic findings as detailed above. Communications: Call Doctor Stroke Electronically signed by: Choco Bhatt M.D. 02/13/23 19:35 PM Brain MRI 02/13/23 20:31 CR Exam(s): MRI HEAD W/WO Contrast IV Amt: 4.5cc gadavist EXAM: MR Head Without and With Intravenous Contrast CLINICAL HISTORY: Reason for exam: TIA. TECHNIQUE: Magnetic resonance images of the head/brain without and with intravenous contrast in multiple planes. CONTRAST: Patient received 4.5cc gadavist of IV contrast COMPARISON: CT head 02/13/2023. FINDINGS: Brain: Acute infarction along the margin of 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 There is a chronic right middle cerebral artery territory infarction with hemosiderin staining along the margins. Chronic right cerebellum infarction. No acute hemorrhage. Brainstem: Chronic microhemorrhages in the left lateral medulla and left cerebellum. Ventricles: Ex vacuo dilatation of the right lateral ventricle. Bones/joints: Postsurgical change related to right frontoparietal craniotomy. Sinuses: Mild mucosal thickening in the maxillary sinuses. Mastoid air cells: Unremarkable as visualized. No mastoid effusion. Orbits: Unremarkable as visualized. IMPRESSION: Acute infarction along the margin of 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 Communications: Call Doctor Stroke Electronically signed by: Lobito Perez MD 02/13/23 23:03 PM Chest X-Ray 02/13/23 20:50 SINGLE VIEW CHEST CLINICAL HISTORY: Generalized weakness. FINDINGS: An AP, portable, upright chest radiograph is compared to study dated 12/10/2022. Correlation is made with chest CT dated 11/22/2020. The examination is degraded by portable technique and apical lordotic positioning. The heart is mildly enlarged. The pulmonary vasculature is noncongested. Chronic interstitial thickening is similar to previous. The lungs and pleural spaces are clear. No pneumothorax is seen. The skeletal structures appear osteopenic. The bony thorax is grossly intact. IMPRESSION: No acute cardiopulmonary abnormality is identified. ACT 112: Negative or not required by law. Electronically signed by: Juan Miguel Cabrera M.D. 02/13/2023 10:20 PM Discharge Plan Visit Data Chief Complaint: Stroke/CVA Symptoms ED Provider: Gilberto Friedman Discharge Problem: Stroke-like symptoms, Hypertension, CKD (chronic kidney disease) stage 3, GFR 30-59 ml/min, History of intracranial hemorrhage Discharge Instructions Interventions: ED Discharge Assessment Last Done: 02/14/23 02:43
[2023-02-13] MEDS ORDERED: methylPREDNISolone 125 MG/2 ML VIAL IV STA (19:23)
[2023-02-13] MEDS ORDERED: diphenhydrAMINE 50 MG/ML VIAL IV STA (19:23)
--- NOTE | 2023-02-13 19:36 | CT Scan Report ---
Exam(s): CT HEAD Without Contrast EXAM: CT Head Without Intravenous Contrast CLINICAL HISTORY: Reason for exam: neuro deficit, acute stroke suspected. TECHNIQUE: Axial computed tomography images of the head/brain without intravenous contrast. CTDI is 37.33 mGy and DLP is 620 mGy-cm. Automated exposure control was utilized for the study. A dose lowering technique was utilized adhering to the principles of ALARA. COMPARISON: 12/10/22. FINDINGS: Redemonstrated right frontal lobe encephalomalacia, apparently the site of a prior hematoma. Redemonstrated overlying craniotomy with chronic postoperative neural changes. Stable encephalomalacia to the inferior right cerebellar hemisphere. No intracranial hemorrhage or mass-effect. No clear acute large vessel territory infarction. Atherosclerosis of skull base arteries. Stable mild ex vacuo dilation of the right lateral ventricle related to adjacent parenchymal volume loss. No evidence of obstructive hydrocephalus. No acute skull fracture. No mastoid or paranasal sinus effusion. IMPRESSION: No acute intracranial process. Right cerebral and cerebellar encephalomalacia and other chronic findings as detailed above. Communications: Call Doctor Stroke Electronically signed by: Choco Bhatt M.D. 02/13/23 19:35 PM
[2023-02-13 19:51] LABS: iSTAT Creatinine 2.3 mg/dl (0.6-1.3); iSTAT Hemoglobin 11.9 g/dl (14.0-18.0); iSTAT Ionized Calcium 1.11 mmol/l (1.12-1.32); iSTAT Potassium 4.8 mmol/L (3.3-5.0)
[2023-02-13 19:54] LABS: Basophils # (auto) 0.07 K/uL (0-0.2); Basophils % (auto) 0.7 %; Eosinophils # (auto) 0.04 K/uL (0-0.50); Eosinophils % (auto) 0.4 %; Hematocrit (blood only) 33.9 % (42.0-52.0); Hemoglobin 11.4 g/dl (14.0-18.0); Immature Granulocytes # (auto) 0.12 K/uL (0.01-0.20); Immature Granulocytes % (auto) 1.2 %; Lymphocytes # (auto) 1.46 K/uL (1.2-3.4); Lymphocytes % (auto) 14.6 %; Mean Corpuscular Hemoglobin 27.5 pg (25.0-34.0); Mean Corpuscular Hgb Conc 33.6 g/dL (32.0-36.0); Mean Corpuscular Volume 81.9 fL (80.0-100.0); Mean Platelet Volume 9.7 fL (9.4-12.4); Monocytes # (auto) 0.18 K/uL (0.11-0.59); Monocytes % (auto) 1.8 %; Neutrophils # (auto) 8.16 K/uL (1.40-6.50); Neutrophils % (auto) 81.3 %; Platelet Count 267 K/uL (130-400); RDW Coefficient of Variation 15.3 % (11.5-14.5); RDW Standard Deviation 45.6 fL (36.4-46.3); Red Blood Count 4.14 M/uL (4.70-6.10); White Blood Count 10.03 K/ul (4.8-10.8)
[2023-02-13 20:21] LABS: Albumin Globulin Ratio 1.4 (0.9-2); Albumin Level 4.5 gm/dl (3.4-5.0); Bilirubin,Total 0.4 mg/dl (0.2-1.0); Calcium 10.4 mg/dl (8.6-10.3); Creatinine Clr Calc Pharmacy 32.9 ml/min; Est GFR (Non-African American) 37.1 ml/min; Globulin 3.2 gm/dl (2.5-4.0); Magnesium 1.8 mg/dl (1.7-2.4); Potassium 4.8 mmol/L (3.5-5.1); Total Protein 7.7 gm/dl (6.0-8.3)
[2023-02-13 20:25] LABS: Partial Thromboplastin Time 28.6 Seconds (21.0-31.0); Prothrombin Time 11.1 Seconds (9.0-12.0)
[2023-02-13 20:28] LABS: Troponin I High Sensitivity 9.2 pg/ml (0-20)
[2023-02-13 20:57] LABS: Appearance Urine Clear (Clear); Bacteria Urine Automated Negative (Negative); Bilirubin Urine Negative (Negative); Blood Urine Negative (Negative); Cast Urine Automated 0 /lpf (0-5); Color Urine Yellow; Epithelial Cell Urine Auto 0-5 /lpf (0-5); Glucose Urine UA Negative (Negative); Ketones Urine Negative (Negative); Leukocyte Esterase Urine Negative (Negative); Nitrite Urine Negative (Negative); Protein Urine 2+ (Negative); RBC Urine Automated 0-4 /hpf (0-4); Specific Gravity Urine 1.007 (1.000-1.030); Urobilinogen Urine Negative (Negative); pH Urine 5.5 (4.5-7.5)
[2023-02-13] MEDS ORDERED: MAGNESIUM SULFATE / D5W 1 GM/100 ML BAG IV ONE (21:00)
[2023-02-13] MEDS ORDERED: LACTATED RINGER'S 1,000 ML IV ONE (21:16)
--- NOTE | 2023-02-13 21:28 | History & Physical Report ---
Date of Service February 13, 2023 Assessment & Plan (1) Stroke-like symptoms: (2) History of intracranial hemorrhage: (3) Hypertension: (4) CKD (chronic kidney disease) stage 3, GFR 30-59 ml/min: (5) History of leukemia: Plan: Assessment and Plan per Dr Coyne. See addendum. History of Present Illness Chief Complaint: left facial droop Primary Care Provider: Jovita Valentin DO Patient is 32-year-old male with PMH HTN, childhood leukemia s/p bone marrow transplant, CKD III, history of right frontotemporal parietal craniotomy for evacuation of intraparenchymal hemorrhage and placement of left frontal EVD on 11/25/2022 at [facility] presented to ER from [facility] for left facial droop noted today. Outpatient records from [facility] on 01/19/23 and [facility] hospital records from 11/2022 reviewed. Patient was discharged to [facility] for rehab. He unfortunately had hit his head during a bed transfer on 12/10/[address] and there was concern for SAH and patient was transferred to [place]. Admitted there 12/10/2022-12/14/2022. Patient was treated conservatively during that admission with no further surgical intervention recommended by neurosurgery. Was readmitted to [facility] on 12/14/2022. It is reported patient has residual dysphagia, left-sided weakness from his initial intraparenchymal hemorrhage in 11/2022. It is reported that today patient developed left facial droop and diplopia. En route to hospital patient reports resolution of symptoms. Today CT head without acute intracranial findings. Denies any increased extremity weakness. Today [facility] neurology was contacted by ER provider. Dr. Plaicdo Orantes from [facility] recommended that patient likely does not need transfer to [facility] and recommends MRI brain with and without contrast and routine EEG and neurology consult Allergies Allergy/AdvReac Type Severity Reaction Status Date / Time Iodinated Contrast Media Allergy Severe Shakes and Verified 02/13/23 19:38 hives amoxicillin AdvReac Intermediate Vomiting Verified 02/13/23 19:38 clavulanic acid AdvReac Intermediate Vomiting Verified 02/13/23 19:38 Home Medications Medication Instructions Recorded Confirmed Type losartan 50 mg tablet 50 mg PO DAILY 11/25/22 02/13/23 History acetaminophen 325 mg tablet 650 mg PO Q4H PRN PAIN/FEVER 02/13/23 02/13/23 History (Tylenol) bisacodyl 10 mg rectal suppository 10 mg RI DAILY PRN Constipation 02/13/23 02/13/23 History carvedilol 25 mg tablet 25 mg PO BIDM 02/13/23 02/13/23 History docusate sodium 100 mg capsule 100 mg PO BID 02/13/23 02/13/23 History (Colace) magnesium hydroxide 400 mg/5 mL 30 ml PO DAILY PRN Constipation 02/13/23 02/13/23 History oral suspension (Milk of Magnesia) melatonin 3 mg tablet 6 mg PO HS PRN Sleep 02/13/23 02/13/23 History ondansetron 4 mg disintegrating 4 mg PO Q4H PRN NAUSEA/VOMITING 02/13/23 02/13/23 History tablet polyethylene glycol 3350 17 17 g PO QDL PRN Constipation 02/13/23 02/13/23 History gram/dose oral powder (Miralax) prednisone 5 mg tablet See Rx Instructions .Route .COMPLEX 02/13/23 02/13/23 History sennosides 8.6 mg-docusate sodium 1 tab-cap PO QDL PRN Constipation 02/13/23 02/13/23 History 50 mg tablet (Senokot-S) Past Med/Surg History Medical History (Updated 02/13/23 @ 22:23 by Laura Aguilar PA-C) Acute lymphoid leukemia, disease (Unknown) CKD (chronic kidney disease) stage 3, GFR 30-59 ml/min History of intracranial hemorrhage History of leukemia Hypertension Transplantation of bone marrow (Unknown) Surgical History H/O craniotomy Family History Other Hypertension Social History Smoking Status: Former smoker Tobacco Type: Cigarettes and E-cigarettes / Vaping Preferred Language: Ecuadorean Communication Ability: Effective Feels Safe at Home: Yes Assistive Devices: Cane Physical Exam Physical Exam: PE per Dr Coyne. Results & Data Results & Data Vital Signs (Past 12 Hours) Vital Signs Temp Pulse Pulse Resp BP BP Pulse Ox 02/13/23 20:34 62 18 140/92 97 02/13/23 20:01 64 18 147/95 H 97 02/13/23 19:54 66 02/13/23 19:25 97 02/13/23 19:25 36.7 C 73 18 155/102 H 97 O2 Del Method O2 Flow Rate 02/13/23 20:34 Room Air 02/13/23 20:01 Room Air 02/13/23 19:54 02/13/23 19:25 Room Air 0 02/13/23 19:25 Room Air Laboratory Results Short CBC 02/13/23 Range/Units 19:36 WBC 10.03 (4.8-10.8) K/ul Hgb 11.4 L (14.0-18.0) g/dl Hct 33.9 L (42.0-52.0) % Plt Count 267 (130-400) K/uL BMP 02/13/23 19:36 Sodium 136 Potassium 4.8 Chloride 98 Carbon Dioxide 21 BUN 49 H Creatinine 2.23 H Glucose 161 H Calcium 10.4 H Liver Function 02/13/23 Range/Units 19:36 Total Bilirubin 0.4 (0.2-1.0) mg/dl AST 15 (13-39) U/L ALT 20 (7-52) U/L Alkaline Phosphatase 81 (34-104) U/L Albumin 4.5 (3.4-5.0) gm/dl Urine 02/13/23 Range/Units 20:30 Urine Color Yellow Urine Appearance Clear (Clear) Urine pH 5.5 (4.5-7.5) Ur Specific [place] 1.007 (1.000-1.030) Urine Protein 2+ H (Negative) Urine Glucose (UA) Negative (Negative) Diagnostic Findings Head CT 02/13/23 19:10 CR Exam(s): CT HEAD Without Contrast EXAM: CT Head Without Intravenous Contrast CLINICAL HISTORY: Reason for exam: neuro deficit, acute stroke suspected. TECHNIQUE: Axial computed tomography images of the head/brain without intravenous contrast. CTDI is 37.33 mGy and DLP is 620 mGy-cm. Automated exposure control was utilized for the study. A dose lowering technique was utilized adhering to the principles of ALARA. COMPARISON: 12/10/22. FINDINGS: Redemonstrated right frontal lobe encephalomalacia, apparently the site of a prior hematoma. Redemonstrated overlying craniotomy with chronic postoperative neural changes. Stable encephalomalacia to the inferior right cerebellar hemisphere. No intracranial hemorrhage or mass-effect. No clear acute large vessel territory infarction. Atherosclerosis of skull base arteries. Stable mild ex vacuo dilation of the right lateral ventricle related to adjacent parenchymal volume loss. No evidence of obstructive hydrocephalus. No acute skull fracture. No mastoid or paranasal sinus effusion. IMPRESSION: No acute intracranial process. Right cerebral and cerebellar encephalomalacia and other chronic findings as detailed above. Communications: Call Doctor Stroke Electronically signed by: Choco Bhatt M.D. 02/13/23 19:35 PM Chest X-Ray 02/13/23 20:50 SINGLE VIEW CHEST CLINICAL HISTORY: Generalized weakness. FINDINGS: An AP, portable, upright chest radiograph is compared to study dated 12/10/2022. Correlation is made with chest CT dated 11/22/2020. The examination is degraded by portable technique and apical lordotic positioning. The heart is mildly enlarged. The pulmonary vasculature is noncongested. Chronic interstitial thickening is similar to previous. The lungs and pleural spaces are clear. No pneumothorax is seen. The skeletal structures appear osteopenic. The bony thorax is grossly intact. IMPRESSION: No acute cardiopulmonary abnormality is identified. ACT 112: Negative or not required by law. Electronically signed by: Juan Miguel Cabrera M.D. 02/13/2023 10:20 PM Supervising Physician Co-Signing Physician Notes IM ATTENDING : Patient seen and examined. History obtained from patient and records. Preceding documentation by Ms. Laura Aguilar PA-C reviewed. In addition: GENERAL: Comfortable, pleasant, slightly hard of hearing, looks older than stated age, no respiratory distress SKIN: Normal color, warm HEENT: [place] palpebral conjunctivae, no ptosis, dry buccal mucosa NECK : Supple, no tenderness CHEST : CTA, no tenderness HEART : RRR, no obvious murmurs ABDOMEN: no distention, nontender EXTREMITIES : No LE swelling/tenderness, no other conspicuous deformities noted NEUROLOGIC : Coherent, no facial asymmetry, slightly hard of hearing, MMTS RUE/RLE 4/5, LUE 2/5 (chronic as per patient), LLE (4/5), gait and stance not assessed Brain MRI: Acute infarction along the margin of 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 FINAL ASSESSMENT AND PLAN as follows : Acute ischemic CVA History traumatic ICH status post surgery (11/2022) on Keppra for seizure prophylaxis hx childhood ALL status post chemoradiation sp bone marrow transplant as per patient Hypertension, slightly elevated ARF on CKD, history FSGS as per records Chronic anemia, hemoglobin at baseline Hypothyroidism, euthyroid as of recent TSH, currently not on maintenance medications. Hyperglycemia secondary to steroid Rx at rehab facility for unclear reasons, likely prediabetes, hemoglobin A1c of 5.7 last November 2022 Past tobacco abuse Medical telemetry Neurochecks Aspirin, statin for secondary stroke prevention TTE, carotid Dopplers for stroke work-up permissive hypertension Neurology consult Re: Acute ischemic stroke Monitor creatinine response to IVF, hold losartan until creatinine back to baseline Update lipid profile and hemoglobin A1c Clarify reason for steroid taper from [facility] facility provider in a.m (Dr. Cline). DVT prophylaxis. Heparin subcu Full code Text document was generated using Yasmo voice recognition software. It may contain grammatical or spelling errors. Kindly contact undersigned for clarification of any documentation item in question.
[2023-02-13] MEDS ORDERED: GADOBUTROL 65ML VIAL IV ONE (22:13)
--- NOTE | 2023-02-13 22:21 | XRay Report ---
SINGLE VIEW CHEST CLINICAL HISTORY: Generalized weakness. FINDINGS: An AP, portable, upright chest radiograph is compared to study dated 12/10/2022. Correlation is made with chest CT dated 11/22/2020. The examination is degraded by portable technique and apical l ordotic positioning. The heart is mildly enlarged. The pulmonary vasculature is noncongested. Chronic interstitial thickening is similar to previous. The lungs and pleural spaces are clear. No pneumotho rax is seen. The skeletal structures appear osteopenic. The bony thorax is grossly intact. IMPRESSION: No acute cardiopulmonary abnormality is identified. ACT 112: Negative or not required by law. Electronically signed by: Juan Miguel Cabrera M.D. 02/13/2023 10:20 PM
--- NOTE | 2023-02-13 23:04 | Magnetic Resonance Report ---
Exam(s): MRI HEAD W/WO Contrast IV Amt: 4.5cc gadavist EXAM: MR Head Without and With Intravenous Contrast CLINICAL HISTORY: Reason for exam: TIA. TECHNIQUE: Magnetic resonance images of the head/brain without and with intravenous contrast in multiple planes. CONTRAST: Patient received 4.5cc gadavist of IV contrast COMPARISON: CT head 02/13/2023. FINDINGS: Brain: Acute infarction along the margin of 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 There is a chronic right middle cerebral artery territory infarction with hemosiderin staining along the margins. Chronic right cerebellum infarction. No acute hemorrhage. Brainstem: Chronic microhemorrhages in the left lateral medulla and left cerebellum. Ventricles: Ex vacuo dilatation of the right lateral ventricle. Bones/joints: Postsurgical change related to right frontoparietal craniotomy. Sinuses: Mild mucosal thickening in the maxillary sinuses. Mastoid air cells: Unremarkable as visualized. No mastoid effusion. Orbits: Unremarkable as visualized. IMPRESSION: Acute infarction along the margin of 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 Communications: Call Doctor Stroke Electronically signed by: Lobito Perez MD 02/13/23 23:03 PM
[2023-02-13] MEDS ORDERED: PROMETHAZINE HCL 6.25 MG in SODIUM CHLORIDE 0.9% 50 ML IV PRN (23:31)
[2023-02-13] MEDS ORDERED: oxyCODONE HCL IR 5 MG TAB (IMMEDIATE RELEASE) PO PRN (23:31)
[2023-02-13] MEDS ORDERED: ASPIRIN CHEW 324 MG PO STA (23:50)
[2023-02-14] MEDS ORDERED: MELATONIN 3 MG TAB PO PRN (02:53)
[2023-02-14] MEDS ORDERED: POLYETHYLENE (MIRALAX) 17 GM PACK PO PRN (02:53)
[2023-02-14] MEDS ORDERED: bisacodyL 10 MG SUPP PR PRN (02:53)
[2023-02-14] MEDS ORDERED: DOCUSATE SODIUM/SENNA 50/8.6MG TAB PO PRN (02:53)
[2023-02-14] MEDS ORDERED: ACETAMINOPHEN 325 MG TAB PO PRN ×2 (02:53)
[2023-02-14] MEDS ORDERED: PHARMACIST DISCHARGE MED REC CONSULT PRN (02:53)
[2023-02-14 05:08] LABS: Basophils # (auto) 0.03 K/uL (0-0.2); Basophils % (auto) 0.3 %; Eosinophils # (auto) 0.01 K/uL (0-0.50); Eosinophils % (auto) 0.1 %; Hematocrit (blood only) 33.2 % (42.0-52.0); Hemoglobin 11.2 g/dl (14.0-18.0); Immature Granulocytes # (auto) 0.12 K/uL (0.01-0.20); Immature Granulocytes % (auto) 1.3 %; Lymphocytes % (auto) 21.3 %; Mean Corpuscular Hemoglobin 27.9 pg (25.0-34.0); Mean Corpuscular Hgb Conc 33.7 g/dL (32.0-36.0); Mean Corpuscular Volume 82.8 fL (80.0-100.0); Monocytes # (auto) 0.56 K/uL (0.11-0.59); Neutrophils # (auto) 6.65 K/uL (1.40-6.50); Platelet Count 245 K/uL (130-400); RDW Coefficient of Variation 15.1 % (11.5-14.5); RDW Standard Deviation 45.2 fL (36.4-46.3); Red Blood Count 4.01 M/uL (4.70-6.10); White Blood Count 9.37 K/ul (4.8-10.8)
[2023-02-14 05:12] LABS: Anion Gap 10 (3-11); Blood Urea Nitrogen 51 mg/dl (6-23); Calcium 9.7 mg/dl (8.6-10.3); Carbon Dioxide 25 mmol/L (21-32); Chloride 101 mmol/L (98-107); Cholesterol 339 mg/dl (0-200); Creatinine Clr Calc Pharmacy 37.5 ml/min; Est GFR (African American) 50.2 ml/min; Est GFR (Non-African American) 43.3 ml/min; Glucose 103 mg/dl (70-99(Fasting)); HDL Cholesterol 37 mg/dl; Potassium 4.9 mmol/L (3.5-5.1); Sodium 136 mmol/L (136-145); Triglycerides 405 mg/dl (0-150)
[2023-02-14] MEDS: HEPARIN SOD 5,000 UNIT/0.5 ML VIAL SQ SCH ×4 (05:37→20:56)
[2023-02-14 06:54] LABS: Chol HDL Ratio 9.2 (0-5)
--- NOTE | 2023-02-14 07:17 | Ultrasound Report ---
ULTRASOUND OF THE CAROTID ARTERIES CLINICAL HISTORY: cva COMPARISON: None available at the time of this dictation. TECHNIQUE: Real-time, grayscale, and color Doppler sonography of the carotid arteries is performed. I mages are reviewed in the transverse and longitudinal planes. FINDINGS: The carotid arteries are patent bilaterally and demonstrate antegrade flow. There is no atherosclerot ic plaque on the right and no atherosclerotic plaque on the left. Normal doppler arterial waveforms a re seen throughout. Velocity measurements are listed below. Common carotid peak systolic velocity (cm/sec): RIGHT: 92 LEFT: 96 ICA peak systolic velocity (cm/sec): RIGHT: 45 LEFT: 47 ICA/CC peak systolic ratio: RIGHT: 0.5 LEFT: 0.5 Antegrade flow was shown in the vertebral arteries. The external carotid arteries are patent. IMPRESSION: 1. There is no sonographic evidence of hemodynamically significant stenosis in the right or left car otid arterial system. 2. Antegrade flow is shown in the vertebral arteries. Society of Radiologists in Ultrasound consensus guidelines: Normal: ICA PSV is <125 cm/sec and no plaque or intimal thickening is visible sonographically additional criteria include ICA/CCA PSV ratio <2.0 and ICA EDV <40 cm/sec <50% ICA stenosis: ICA PSV is <125 cm/sec and plaque or intimal thickening is visible sonographically additional criteria include ICA/CCA PSV ratio <2.0 and ICA EDV <40 cm/sec 50-69% ICA stenosis: ICA PSV is 125-230 cm/sec and plaque is visible sonographically additional criteria include ICA/CCA PSV ratio of 2.0-4.0 and ICA EDV of 40-100 cm/sec ?70% ICA stenosis but less than near occlusion: ICA PSV is >230 cm/sec and visible plaque and luminal narrowing are seen at longoria-scale and color Dopp ler ultrasound (the higher the Doppler parameters lie above the threshold of 230 cm/sec, the greater the likelihood of severe disease) additional criteria include ICA/CCA PSV ratio >4 and ICA EDV >100 cm/sec ACT 112: Negative or not required by law. Electronically signed by: Jay Loera M.D. 02/14/2023 7:16 AM
[2023-02-14 07:37] LABS: Estimated Average Glucose 120 mg/dl; Hemoglobin A1C 5.8 % (4.5-5.6)
[2023-02-14] MEDS: ATORVASTATIN 20 MG TAB PO SCH (09:15)
[2023-02-14] MEDS: DOCUSATE SODIUM 100 MG CAP PO SCH ×3 (09:44→20:56)
--- NOTE | 2023-02-14 09:54 | Neurology Consultation ---
Date of Consultation February 14, 2023 Assessment & Plan (1) Stroke-like symptoms: Patient presents with hallucinations which are commonly seen in healing of the visual pathways due to the brain filling in visual details. Do not suspect a psychiatric basis for the hallucinations, similarly the described double vision can be explained by the injury to his visual pathways duplicating images. I reviewed the MRI, this is not an ischemic stroke. There is appropriate restricted diffusion within the surgical cavity reflecting metabolism of the residual blood products. Please do not start any antiplatelet therapy. He does not need further stroke workup. Recommend return to rehab as soon as possible, he is doing very well and I am encouraged by his rehab progress. Please contact us with any further questions. -- Stop aspirin -- No further stroke workup, not a stroke -- Can be discharged back to rehab Telehealth Consultation Telehealth Information Telehealth Information: I performed this visit using a real-time telehealth connection between my location and the patients location ([facility]). After connecting through interactive tele-video, patient was identified by name and date of and/or wristband check.Patient (or authorized healthcare labor representative) was informed that this was a telemedicine visit and it was being conducted confidentially over secure lines. My office door was closed and no one else was present in the room with me.Patient (or authorized healthcare labor representative) provided consent to proceed with the visit, expressed an understanding of privacy and security of the telemedicine visit, and gave permission to have a hospital labor representative in the room in order to assist with the visit and to conduct portions of the visit, as needed. I informed the patient (or authorized healthcare labor representative) that I reviewed their record and presented the opportunity for them to ask any questions regarding the visit today. The patient agreed to participate. History of Present Illness Reason for Consultation: Hallucinations Requesting Physician: Dr. Worthington Attending Physician: Consuelo Worthington MD History of Present Illness Raj Mendez is a 32 yo M with a history of a R ICA s/p evacuation at [facility] in December 2022. He presents today from [facility] due to concern for visual hallucinations and double vision. He reports seeing objects and people as well as movement of to the left side of his vision which was affected by the stroke. The hallucinations only occurred briefly and have not recurred. he also reports double vision, specifically thought he had two bowls of blueberries when he only had one in front of him. He is very happy with his progress at rehab and has been ambulatory with a quad crutch. Otherwise denies any new weakness, speech changes, recent falls or headaches. Allergies Allergy/AdvReac Type Severity Reaction Status Date / Time Iodinated Contrast Media Allergy Severe Shakes and Verified 02/13/23 19:38 hives amoxicillin AdvReac Intermediate Vomiting Verified 02/13/23 19:38 clavulanic acid AdvReac Intermediate Vomiting Verified 02/13/23 19:38 Home Medications Medication Instructions Recorded Confirmed Type losartan 50 mg tablet 50 mg PO DAILY 11/25/22 02/13/23 History acetaminophen 325 mg tablet 650 mg PO Q4H PRN PAIN/FEVER 02/13/23 02/13/23 History (Tylenol) bisacodyl 10 mg rectal suppository 10 mg LA DAILY PRN Constipation 02/13/2307/27 History carvedilol 25 mg tablet 25 mg PO BIDM 02/13/23 02/13/23 History docusate sodium 100 mg capsule 100 mg PO BID 02/13/23 02/13/23 History (Colace) magnesium hydroxide 400 mg/5 mL 30 ml PO DAILY PRN Constipation 02/13/23 02/13/23 History oral suspension (Milk of Magnesia) melatonin 3 mg tablet 6 mg PO HS PRN Sleep 02/13/23 02/13/23 History ondansetron 4 mg disintegrating 4 mg PO Q4H PRN NAUSEA/VOMITING 02/13/23 02/13/23 History tablet polyethylene glycol 3350 17 17 g PO QDL PRN Constipation 02/13/23 02/13/23 History gram/dose oral powder (Miralax) prednisone 5 mg tablet See Rx Instructions .Route .COMPLEX 02/13/23 02/13/23 History sennosides 8.6 mg-docusate sodium 1 tab-cap PO QDL PRN Constipation 02/13/23 02/13/23 History 50 mg tablet (Senokot-S) Patient History Medical History (Updated 02/13/23 @ 22:23 by Laura Aguilar PA-C) Acute lymphoid leukemia, disease (Unknown) CKD (chronic kidney disease) stage 3, GFR 30-59 ml/min History of intracranial hemorrhage History of leukemia Hypertension Transplantation of bone marrow (Unknown) Surgical History H/O craniotomy Family History Other Hypertension Social History Smoking Status: Former smoker Tobacco Type: Cigarettes and E-cigarettes / Vaping Preferred Language: Grenadian Feels Safe at Home: Yes Review of Systems +hallucinations Physical Exam Neurological Examination: Mental Status: Awake and alert. Oriented to person, place, and time. Fluent. Comprehension intact. Affect appropriate. Cranial Nerves: II: pupils 3/3 to 2/2, LHH III/IV/: Versions intact without nystagmus, no gaze preference. VII: Facial expression symmetric Motor: Strength was antigravity with LUE flexor posture. No drift in LLE. No abnormal movements. Results & Data Vital Signs (Past 12 Hours) Vital Signs Pulse Pulse Resp BP BP Pulse Ox O2 Del Method 02/14/23 07:29 49 L 16 163/90 H 99 Room Air 02/14/23 07:26 49 L 16 163/90 H 99 Room Air 02/14/23 06:59 46 L 02/14/23 05:00 51 L 16 116/77 98 02/14/23 04:50 52 L 19 124/78 97 02/14/23 02:30 53 L 17 02/14/23 02:00 61 18 02/14/23 02:00 133/90 02/14/23 01:30 53 L 19 02/14/23 01:00 52 L 18 02/14/23 01:00 131/85 02/14/23 00:30 51 L 18 02/14/23 00:00 59 L 18 02/14/23 00:00 151/102 H 02/13/23 23:30 65 13 02/13/23 23:00 63 23 95 02/13/23 23:00 154/107 H 02/13/23 22:48 149/103 H 02/13/23 22:48 66 20 96 02/13/23 22:47 95 Laboratory Results Abnormal lab results 02/13/23 02/13/23 02/13/23 Range/Units 19:36 19:36 19:38 RBC 4.14 L (4.70-6.10) M/uL Hgb 11.4 L (14.0-18.0) g/dl POC Hgb 11.9 L (14.0-18.0) g/dl Hct 33.9 L (42.0-52.0) % POC Hct 35 L (42-52) % RDW Coeff of William 15.3 H (11.5-14.5) % Neut # (Auto) 8.16 H (1.40-6.50) K/uL POC Total CO2 21 L (24-31) mmol/L Anion Gap 17 H (3-11) POC BUN 47 H (7-18) mg/dl BUN 49 H (6-23) mg/dl Creatinine 2.23 H (0.6-1.4) mg/dl POC Creatinine 2.3 H (0.6-1.3) mg/dl BUN/Creatinine Ratio 22.0 H (10-20) Glucose 161 H (70-99(Fasting)) mg/dl POC Glucose (other) 170 H (70-99) mg/dl Hemoglobin A1c (4.5-5.6) % Calcium 10.4 H (8.6-10.3) mg/dl POC Ioniz Calcium [place] 1.11 L (1.12-1.32) mmol/l Triglycerides (0-150) mg/dl Cholesterol (0-200) mg/dl Cholesterol/HDL Ratio (0-5) Urine Protein (Negative) 02/13/23 02/14/23 02/14/23 Range/Units 20:30 04:18 04:18 RBC 4.01 L (4.70-6.10) M/uL Hgb 11.2 L (14.0-18.0) g/dl POC Hgb (14.0-18.0) g/dl Hct 33.2 L (42.0-52.0) % POC Hct (42-52) % RDW Coeff of William 15.1 H (11.5-14.5) % Neut # (Auto) 6.65 H (1.40-6.50) K/uL POC Total CO2 (24-31) mmol/L Anion Gap (3-11) POC BUN (7-18) mg/dl BUN 51 H (6-23) mg/dl Creatinine 1.96 H (0.6-1.4) mg/dl POC Creatinine (0.6-1.3) mg/dl BUN/Creatinine Ratio 26.0 H (10-20) Glucose 103 H (70-99(Fasting)) mg/dl POC Glucose (other) (70-99) mg/dl Hemoglobin A1c (4.5-5.6) % Calcium (8.6-10.3) mg/dl POC Ioniz Calcium [place] (1.12-1.32) mmol/l Triglycerides 405 H (0-150) mg/dl Cholesterol 339 H (0-200) mg/dl Cholesterol/HDL Ratio 9.2 H (0-5) Urine Protein 2+ H (Negative) 02/14/23 Range/Units 04:18 RBC (4.70-6.10) M/uL Hgb (14.0-18.0) g/dl POC Hgb (14.0-18.0) g/dl Hct (42.0-52.0) % POC Hct (42-52) % RDW Coeff of William (11.5-14.5) % Neut # (Auto) (1.40-6.50) K/uL POC Total CO2 (24-31) mmol/L Anion Gap (3-11) POC BUN (7-18) mg/dl BUN (6-23) mg/dl Creatinine (0.6-1.4) mg/dl POC Creatinine (0.6-1.3) mg/dl BUN/Creatinine Ratio (10-20) Glucose (70-99(Fasting)) mg/dl POC Glucose (other) (70-99) mg/dl Hemoglobin A1c 5.8 H (4.5-5.6) % Calcium (8.6-10.3) mg/dl POC Ioniz Calcium [place] (1.12-1.32) mmol/l Triglycerides (0-150) mg/dl Cholesterol (0-200) mg/dl Cholesterol/HDL Ratio (0-5) Urine Protein (Negative) Diagnostic Findings MRI brain 02/11 - Expected evolution of blood products within surgical cavity.
--- NOTE | 2023-02-14 11:25 | Discharge Summary ---
Date of Service February 14, 2023 Admission HPI Per Admitting Provider Patient is 32-year-old male with PMH HTN, childhood leukemia s/p bone marrow transplant, CKD III, history of right frontotemporal parietal craniotomy for evacuation of intraparenchymal hemorrhage and placement of left frontal EVD on 11/25/2022 at [facility] presented to ER from [facility] for left facial droop noted today. Outpatient records from [facility] on 01/19/23 and [facility] hospital records from 11/2022 reviewed. Patient was discharged to [facility] for rehab. He unfortunately had hit his head during a bed transfer on 12/10/[address] head and there was concern for SAH and patient was transferred to [place]. Admitted there 12/10/2022-12/14/2022. Patient was treated conservatively during that admission with no further surgical intervention recommended by neurosurgery. Was readmitted to [facility] on 12/14/2022. It is reported patient has residual dysphagia, left-sided weakness from his initial intraparenchymal hemorrhage in 11/2022. It is reported that today patient developed left facial droop and diplopia. En route to hospital patient reports resolution of symptoms. Today CT head without acute intracranial findings. Denies any increased extremity weakness. Today [facility] neurology was contacted by ER provider. Dr. Placido Orantes from [facility] recommended that patient likely does not need transfer to [facility] and recommends MRI brain with and without contrast and routine EEG and neurology consult Discharge Data Allergies Allergy/AdvReac Type Severity Reaction Status Date / Time Iodinated Contrast Media Allergy Severe Shakes and Verified 02/13/23 19:38 hives amoxicillin AdvReac Intermediate Vomiting Verified 02/13/23 19:38 clavulanic acid AdvReac Intermediate Vomiting Verified 02/13/23 19:38 Consultations 02/13/23 20:31 ED Decision to Admit Stat 02/13/23 20:54 ED Decision to Admit Stat 02/14/23 02:53 Consult Neurology Routine Ordered Studies 02/13/23 19:10 CT head/brain wo con Stat 02/13/23 20:31 MR brain wo/w con Stat 02/14/23 US carotid doppler BI Routine Hospital Course (1) Stroke-like symptoms: (2) History of intracranial hemorrhage: (3) Hypertension: (4) CKD (chronic kidney disease) stage 3, GFR 30-59 ml/min: (5) History of leukemia: Plan Brain MRI: Acute infarction along the margin of 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 Hyperglycemia likely prediabetes, hemoglobin A1c of 5.7 last November 2022 Past tobacco abuse Discharge Plan Discharge Items Patient Disposition[facility] Reason For Visit: CVA Discharge Diagnosis: Stroke-like symptoms Activity: Resume your previous activity Non-emergency contact: Primary Care Provider and Neurologist Call non-emergency contact if: you have any medication questions and your symptoms worsen Follow-up/Referrals: Jovita Valentin DO [Primary Care Provider] - Stand-Alone Forms: [facility] Medications and DC Order Prescriptions: No Action carvedilol 25 mg Tablet 25 mg PO BIDM Rx Instructions: must administer with a meal/food acetaminophen [Tylenol] 325 mg Tablet 650 mg PO Q4H PRN (Reason: PAIN/FEVER) sennosides-docusate sodium [Senokot-S] 8.6-50 mg Tablet 1 tab-cap PO QDL PRN (Reason: Constipation) prednisone 5 mg Tablet See Rx Instructions .ROUTE .COMPLEX Rx Instructions: STARTED 02/13/23 TAKES 15 MG X 2 DAYS, THEN 10 MG X 2 DAYS, THEN 5 MG X 2 DAYS, THEN STOP. ENDS 02/19/23 melatonin 3 mg Tablet 6 mg PO HS PRN (Reason: Sleep) magnesium hydroxide [Milk of Magnesia] 400 mg/5 mL Suspension 30 ml PO DAILY PRN (Reason: Constipation) bisacodyl 10 mg Suppository 10 mg OR DAILY PRN (Reason: Constipation) docusate sodium [Colace] 100 mg Capsule 100 mg PO BID polyethylene glycol 3350 [Miralax] 17 gram/dose Powder 17 g PO QDL PRN (Reason: Constipation) ondansetron [Zofran ODT] 4 mg Tablet,Disintegrating 4 mg PO Q4H PRN (Reason: NAUSEA/VOMITING) losartan 50 mg Tablet 50 mg PO DAILY Admission Data Admit Date/Time: 02/13/23 23:26 Attending Provider: Consuelo Worthington Admit Provider: Jerardo Coyne Primary Care Provider: Jovita Valentin Other Providers: Jerardo Coyne ; [facility]
--- NOTE | 2023-02-14 12:17 | Electrocardiogram Report ---
Test Reason : Blood Pressure : / mmHG Vent. Rate : 073 BPM Atrial Rate : 073 BPM P-R Int : 132 ms QRS Dur : 090 ms QT Int : 346 ms P-R-T Axes : 041 029 092 degrees QTc Int : 381 ms Normal sinus rhythm Nonspecific T wave abnormality Abnormal ECG When compared with ECG of 10-DEC-2022 14:20, No significant change was found Confirmed by Reinaldo Castrejon ([id number]) on 02/14/2023 12:17:17 PM Referred By: REFERRED SELF Confirmed By:Terrance Castrejon
[2023-02-14] MEDS: LOSARTAN POTASSIUM 50 MG TAB PO SCH (13:53)
[2023-02-14] MEDS: carvediloL 25 MG TAB PO SCH (17:32)
--- NOTE | 2023-02-14 22:50 | Hospitalist Progress Note ---
Date of Service February 14, 2023 Assessment & Plan (1) Stroke-like symptoms: Plan: Complicated medical Hx, presenting with new strokelike symptoms in the form of new facial droop, visual hallucinations and diplopia. Seen by Neurology and advised that pt did NOT have a stroke, did not need stroke workup and should not be placed on further anticoagulation. Advised that he go back to acute rehab where had been progressing well. Unfortunately pt required new auth to go back and is currently awaiting placement. (2) History of intracranial hemorrhage: (3) Hypertension: (4) CKD (chronic kidney disease) stage 3, GFR 30-59 ml/min: (5) History of leukemia: Admission and Anticipated Discharge Date Admission Date: February 13, 2023 Subjective Pt seen this AM. States his stroke like symptoms have resolved. Would like to go home or resume his activities. Review of Systems Review of Systems: All systems reviewed & are unremarkable except as noted in Subjective Physical Exam Physical Exam: General: Alert, oriented. No acute distress Skin: No noted rashes or bruises Psych: Appropriate mood and affect Neuro: left sided deficits noted, facial droop resolved HEENT: NC/AT CV: RRR, Normal s1, s2. No murmurs appreciated Resp: Breath sounds clear bilaterally, no increased effort of breathing. No crackles/rhonchi/rales. Abdomen: Soft, nontender, nondistended. No guarding. No organomegaly appreciated. Extremities: No edema in lower extremities bilaterally. Results & Data Results & Data Vital Signs (Past 12 Hours) Vital Signs Pulse Resp BP Pulse Ox O2 Del Method 02/14/23 22:34 88 18 125/94 96 Room Air (3) Hypertension Hypertension type: unspecified Qualified Code(s): I10 - Essential (primary) hypertension (4) CKD (chronic kidney disease) stage 3, GFR 30-59 ml/min Chronic kidney disease stage 3 subtype: unspecified whether 3a or 3b Qualified Code(s): N18.30 - Chronic kidney disease, stage 3 unspecified
[2023-02-15] MEDS: HEPARIN SOD 5,000 UNIT/0.5 ML VIAL SQ SCH ×2 (05:06→13:10)
[2023-02-15 06:29] LABS: Basophils # (auto) 0.11 K/uL (0-0.2); Basophils % (auto) 1.1 %; Eosinophils # (auto) 0.29 K/uL (0-0.50); Eosinophils % (auto) 2.9 %; Hematocrit (blood only) 36.4 % (42.0-52.0); Hemoglobin 12.2 g/dl (14.0-18.0); Immature Granulocytes # (auto) 0.11 K/uL (0.01-0.20); Immature Granulocytes % (auto) 1.1 %; Lymphocytes % (auto) 40.6 %; Mean Corpuscular Hemoglobin 27.5 pg (25.0-34.0); Mean Corpuscular Hgb Conc 33.5 g/dL (32.0-36.0); Mean Platelet Volume 9.7 fL (9.4-12.4); Monocytes # (auto) 0.86 K/uL (0.11-0.59); Monocytes % (auto) 8.5 %; Neutrophils # (auto) 4.63 K/uL (1.40-6.50); Neutrophils % (auto) 45.8 %; Platelet Count 252 K/uL (130-400); RDW Coefficient of Variation 15.1 % (11.5-14.5); RDW Standard Deviation 45.1 fL (36.4-46.3); Red Blood Count 4.44 M/uL (4.70-6.10)
[2023-02-15 06:39] LABS: BUN Creatinine Ratio 25.7 (10-20); Calcium 10.2 mg/dl (8.6-10.3); Creatinine Clr Calc Pharmacy 34.8 ml/min; Est GFR (African American) 48.4 ml/min; Est GFR (Non-African American) 41.8 ml/min; Potassium 4.5 mmol/L (3.5-5.1)
[2023-02-15] MEDS ORDERED: ASPIRIN 81 MG ECTAB PO SCH (09:00)
[2023-02-15] MEDS: carvediloL 25 MG TAB PO SCH ×2 (09:12→17:07)
[2023-02-15] MEDS: ATORVASTATIN 20 MG TAB PO SCH (09:12)
[2023-02-15] MEDS: LOSARTAN POTASSIUM 50 MG TAB PO SCH (09:12)
[2023-02-15] MEDS: DOCUSATE SODIUM 100 MG CAP PO SCH (09:13)
--- NOTE | 2023-02-15 16:39 | Discharge Summary ---
Date of Service February 15, 2023 Admission HPI Per Admitting Provider Patient is 32-year-old male with PMH HTN, childhood leukemia s/p bone marrow transplant, CKD III, history of right frontotemporal parietal craniotomy for evacuation of intraparenchymal hemorrhage and placement of left frontal EVD on 11/25/2022 at [facility] presented to ER from [facility] for left facial droop noted today. Outpatient records from [facility] on 01/19/23 and [facility] hospital records from 11/2022 reviewed. Patient was discharged to [facility] for rehab. He unfortunately had hit his head during a bed transfer on 12/10/[address] head and there was concern for SAH and patient was transferred to [place]. Admitted there 12/10/2022-12/14/2022. Patient was treated conservatively during that admission with no further surgical intervention recommended by neurosurgery. Was readmitted to [facility] on 12/14/2022. It is reported patient has residual dysphagia, left-sided weakness from his initial intraparenchymal hemorrhage in 11/2022. It is reported that today patient developed left facial droop and diplopia. En route to hospital patient reports resolution of symptoms. Today CT head without acute intracranial findings. Denies any increased extremity weakness. Today [facility] neurology was contacted by ER provider. Dr. Placido Orantes from [facility] recommended that patient likely does not need transfer to [facility] and recommends MRI brain with and without contrast and routine EEG and neurology consult Admission Exam Per Admitting Provider GENERAL: Comfortable, pleasant, slightly hard of hearing, looks older than stated age, no respiratory distress SKIN: Normal color, warm HEENT: [place] palpebral conjunctivae, no ptosis, dry buccal mucosa NECK : Supple, no tenderness CHEST : CTA, no tenderness HEART : RRR, no obvious murmurs ABDOMEN: no distention, nontender EXTREMITIES : No LE swelling/tenderness, no other conspicuous deformities noted NEUROLOGIC : Coherent, no facial asymmetry, slightly hard of hearing, MMTS RUE/RLE 4/5, LUE 2/5 (chronic as per patient), LLE (4/5), gait and stance not assessed Principal Diagnosis Stroke-like symptoms Discharge Exam General: Alert, oriented. No acute distress Skin: No noted rashes or bruises Psych: Appropriate mood and affect Neuro: left sided weakness noted, facial droop resolved HEENT: NC/AT CV: RRR, Normal s1, s2. No murmurs appreciated Resp: Breath sounds clear bilaterally, no increased effort of breathing. No crackles/rhonchi/rales. Abdomen: Soft, nontender, nondistended. No guarding. No organomegaly appreciated. Extremities: No edema in lower extremities bilaterally. Discharge Data Allergies Allergy/AdvReac Type Severity Reaction Status Date / Time Iodinated Contrast Media Allergy Severe Shakes and Verified 02/13/23 19:38 hives amoxicillin AdvReac Intermediate Vomiting Verified 02/13/23 19:38 clavulanic acid AdvReac Intermediate Vomiting Verified 02/13/23 19:38 Consultations 02/13/23 20:31 ED Decision to Admit Stat 02/13/23 20:54 ED Decision to Admit Stat 02/14/23 02:53 Consult Neurology Routine Ordered Studies 02/13/23 19:10 CT head/brain wo con Stat 02/13/23 20:31 MR brain wo/w con Stat 02/14/23 US carotid doppler BI Routine Hospital Course (1) Stroke-like symptoms: 32yoM with PMHx of HTN, childhood leukemia s/p bone marrow transplant, CKD III, history of right frontotemporal parietal craniotomy for evacuation of intraparenchymal hemorrhage and placement of left frontal EVD on 11/25/2022 at [facility] who [facility] stroke-like symptoms that subsequently resolved. Complicated medical Hx, presented with new strokelike symptoms in the form of new facial droop, visual hallucinations and diplopia. Seen by Neurology and advised that pt did NOT have a stroke, did not need stroke workup and should not be placed on further anticoagulation. Advised that he go back to acute rehab where had been progressing well. Unfortunately pt required new authorization to go back to [facility] and a bed was available on 02/15/2023. Continue all home medications, no changes made. PCP and specialist follow up as previously scheduled. (2) History of intracranial hemorrhage: (3) Hypertension: (4) CKD (chronic kidney disease) stage 3, GFR 30-59 ml/min: (5) History of leukemia: Total Time Total Time Spent Total Time Spent (In Minutes): > 30 minutes Discharge Plan Discharge Items Patient Disposition: Transfer Inpatient Rehab Fac Reason For Visit: CVA Discharge Diagnosis: Stroke-like symptoms Activity: Resume your previous activity Non-emergency contact: Primary Care Provider and Neurologist Call non-emergency contact if: you have any medication questions and your symptoms worsen Follow-up/Referrals: Jovita Valentin DO [Primary Care Provider] - Diet: Heart Healthy Addtl Attending Provider Instructions: You were admitted as you were having stroke-like symptoms. Those resolved and Neurology reviewed your MRI findings. The neurologist advised that you did NOT have a stroke and that your symptoms were related to an evolving process occurring in your brain. They recommended going back to rehab as you were doing well there. Continue with your previous regimen and medications. No changes were made on discharge. Please keep follow up with your primary care provider and specialists. Pending Studies at Discharge: No Stand-Alone Forms: [facility] Skilled Items Patient informed of condition?: Yes DNR: No Discharge Level of Care: Acute rehab Communicable Disease: No Discharge Prognosis: Stable Lines: None Urinary Catheter: No Medications and DC Order Prescriptions: Continued carvedilol 25 mg Tablet 25 mg PO BIDM Rx Instructions: must administer with a meal/food acetaminophen [Tylenol] 325 mg Tablet 650 mg PO Q4H PRN (Reason: PAIN/FEVER) sennosides-docusate sodium [Senokot-S] 8.6-50 mg Tablet 1 tab-cap PO QDL PRN (Reason: Constipation) prednisone 5 mg Tablet See Rx Instructions .ROUTE .COMPLEX Rx Instructions: STARTED 02/13/23 TAKES 15 MG X 2 DAYS, THEN 10 MG X 2 DAYS, THEN 5 MG X 2 DAYS, THEN STOP. ENDS 02/19/23 melatonin 3 mg Tablet 6 mg PO HS PRN (Reason: Sleep) magnesium hydroxide [Milk of Magnesia] 400 mg/5 mL Suspension 30 ml PO DAILY PRN (Reason: Constipation) bisacodyl 10 mg Suppository 10 mg [place] DAILY PRN (Reason: Constipation) docusate sodium [Colace] 100 mg Capsule 100 mg PO BID polyethylene glycol 3350 [Miralax] 17 gram/dose Powder 17 g PO QDL PRN (Reason: Constipation) ondansetron 4 mg Tablet,Disintegrating 4 mg PO Q4H PRN (Reason: NAUSEA/VOMITING) losartan 50 mg Tablet 50 mg PO DAILY Discharge Orders: Discharge Order (Routine); Ordered 02/15/23 Ordered By: Consuelo Worthington Admission Data Admit Date/Time: 02/13/23 23:26 Attending Provider: Consuelo Worthington Admit Provider: Jerardo Coyne Primary Care Provider: Jovita Valentin Other Providers: Jerardo Coyne ; [facility]
== END 2023-02-15 17:37 | DRG 92 ==
LOC: ED 19:10 → EDINP 23:26 → SUATTDRO 23:26 → 2N 02-14 02:43